=== PATIENT | male | born 1980 | race African-American/Black ===

== ENCOUNTER 2020-08-29 03:44 | Emergency (ER) | payer OTHER ==
[~2020-08-29] VITALS: Ht 177.8 cm; Wt 81.8 kg
[2020-08-29] MEDS ORDERED: LIDO:MAALOX 1:1 20 ML SINGLE DOSE. PO ONE (04:00)
[2020-08-29 04:04] VITALS: BP 154/89
--- NOTE | 2020-08-29 04:12 | PHYS DOC ---
Adult General Chief Complaint Chief Complaint: CHEST PAIN HPI HPI Patient is a 40-year-old male who presents with a chief complaint of chest discomfort. States he woke up at about 2 AM with a pressure just under her sternum, states it just felt uncomfortable and thought it may be gas because he ate a bunch of barbecue and drank some alcohol just before going to bed. States he is in the , and exercises a lot, does not smoke and only drinks occasionally. Denies any drug use. States he has some anxiety issues as well, and had the same feeling a few years ago and was worked up for cardiac issues which came back negative. Denies any recent travel, traumas, illnesses, fevers, cold/flu symptoms, shortness of breath, abdominal pain, nausea, vomiting, diarrhea, hematuria or blood in the stool. Denies any dyspnea on exertion, orthopnea, PND or edema. Review of Systems Review of Systems Review of systems otherwise unremarkable except for noted in HPI Current Medications Current Medications Current Medications Medications (Trade) Dose Ordered Sig/Russell Start Time Stop Time Status Last Admin Dose Admin Multi-Ingredient Mouthwash/Gargle (Gi Cocktail) 20 ml 1X ONCE 08/29/20 04:00 08/29/20 04:01 UNV Allergies Allergies Allergies Coded Allergies Type Severity Reaction Last Updated Verified No Known Drug Allergies 08/29/20 No Physical Exam Physical Exam Constitutional: Well developed, well nourished, no acute distress, non-toxic appearance. [] HENT: Normocephalic, atraumatic, bilateral external ears normal, oropharynx moist, no oral exudates, nose normal. [] Eyes: PERRLA, EOMI, conjunctiva normal, no discharge. [] Neck: Normal range of motion, no tenderness, supple, no stridor. [] Cardiovascular:Heart rate regular rhythm, no murmur [] Lungs & Thorax: Bilateral breath sounds clear to auscultation [] Abdomen: Bowel sounds normal, soft, no tenderness, no masses, no pulsatile masses. [] Skin: Warm, dry, no erythema, no rash. [] Back: No tenderness, no CVA tenderness. [] Extremities: No tenderness, no cyanosis, no clubbing, ROM intact, no edema. [] Neurologic: Alert and oriented X 3, normal motor function, normal sensory function, no focal deficits noted. [] Psychologic: Affect normal, judgement normal, mood normal. [] EKG EKG EKG with a rate of 51, QRS of 98, QTC of 393, no STEMI. Abnormal EKG however with incomplete right bundle branch block.] Radiology/Procedures Radiology/Procedures []IMPRESSION: 1. No radiographic evidence for acute cardiopulmonary process. Electronically signed by: Feliz Johnson MD (08/29/2020 4:30 AM) [facility] Heart Score HEART Score for Chest Pain: HEART Score for Chest Pain Response (Comments) Value History Slighlty/Non-Suspicious 0 ECG Nonspecific Repolarizatio 1 Age < 45 0 Risk Factors No Risk Factors 0 Troponin < Normal Limit 0 Total 1 Risk Factors: Risk Factors: DM, Current or recent (<one month) smoker, HTN, HLP, family history of CAD, obesity. Risk Scores: Risk Factors: DM, Current or recent (<one month) smoker, HTN, HLP, family history of CAD, obesity. Course & Med Decision Making Course & Med Decision Making Patient is a 40-year-old male who presents with substernal chest pressure which started approximately 2 hours ago. States that here in the ED the symptoms have resolved. Vital signs not concerning however heart rate is 51. Patient states that his heart rate is usually somewhere around 50-55 and has been told is because he exercises quite a bit. EKG noted above with no STEMI but does appear to have an incomplete right bundle branch block. Troponin normal. Chest x-ray normal. Heart score of 1. Discussed work-up with patient and advised to follow-up as soon as possible with his primary care physician to discuss outpatient cardiology work-up including stress test and echocardiogram. Also advised to begin an [id number] anti- GERD medication and discuss this with his doctor as well given that he does have symptoms of GERD fairly frequently and states that he ate a bunch of barbecue and drink some alcohol last night right before going to bed. On reassessment patient was still asymptomatic and felt safe discharging home. Patient verbalized understanding of follow-up plan and agreed with plan of discharge. [] Dragon Disclaimer Dragon Disclaimer This electronic medical record was generated, in whole or in part, using a voice recognition dictation system. Departure Departure: Disposition: 01 DC HOME SELF CARE/HOMELESS Condition: GOOD Referrals: NON,STAFF (PCP) Patient Instructions: Chest Pain (Nonspecific), [id number], Heartburn LOUIS BAZZI MD Aug 29, 2020 04:12
--- NOTE | 2020-08-29 04:33 | RAD ---
EXAM: AP View of the chest DATE: 08/29/2020 4:11 AM INDICATION: Reason: CHEST PAIN / Spl. Instructions: / History: COMPARISON: No Prior FINDINGS: The heart is not enlarged. Mediastinal and hilar contours are normal. No focal parenchymal airspace opacity. No pleural effusion or pneumothorax. IMPRESSION: 1. No radiographic evidence for acute cardiopulmonary process. Electronically signed by: Feliz Johnson MD (08/29/2020 4:30 AM) CARISA
--- NOTE | 2020-08-29 05:19 | EKG ---
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
== END 2020-08-29 05:03 | disposition home or self-care (01) ==
LOC: ER 03:44
DX: R07.2 Precordial pain (principal); F41.9 Anxiety disorder, unspecified
CPT/HCPCS: 36415; 71045; 84484; 93005; 99285

== ENCOUNTER 2020-09-17 08:53 | Emergency (ER) | payer OTHER ==
[~2020-09-17] VITALS: Ht 180.3 cm; Wt 86.0 kg
[2020-09-17] MEDS ORDERED: ASPIRIN CHEWABLE 81 MG TABLET. PO ONE (09:15)
--- NOTE | 2020-09-17 09:24 | EKG ---
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
[2020-09-17 09:30] LABS: BASO % 1 % (0-3); EOS # 0.2 x10^3/uL (0.0-0.7); EOS % 5 % (0-3); HEMATOCRIT 41.5 % (39.0-53.0); HEMOGLOBIN 13.7 g/dL (13.0-17.5); LYMPH # 1.1 x10^3/uL (1.0-4.8); LYMPH % 32 % (24-48); MEAN CORPUSCULAR HEMOGLOBIN 31 pg (25-35); MEAN CORPUSCULAR HGB CONC 33 g/dL (31-37); MEAN CORPUSCULAR VOLUME 95 fL (79-100); MONO # 0.4 x10^3/uL (0.0-1.1); MONO % 10 % (0-9); NEUT # 1.8 x10^3uL (1.8-7.7); NEUT % 52 % (31-73); PLATELET COUNT 253 x10^3/uL (140-400); RED BLOOD COUNT 4.39 x10^6/uL (4.30-5.70); RED CELL DISTRIBUTION WIDTH 12.7 % (11.5-14.5); WHITE BLOOD COUNT 3.5 x10^3/uL (4.0-11.0)
--- NOTE | 2020-09-17 09:30 | RAD ---
INDICATION: Reason: chest pain / Spl. Instructions: / History: COMPARISON: August 29, 2020 FINDINGS: 2 view of chest obtained. No focal airspace consolidation. Cardiomediastinal contour unremarkable. No acute osseous abnormality. IMPRESSION: * No focal airspace consolidation or edema. Electronically signed by: Jose Rafael Moran MD (09/17/2020 9:28 AM) [id number]
[2020-09-17 09:45] LABS: CALCIUM 8.8 mg/dL (8.5-10.1); CREATININE 1.1 mg/dL (0.7-1.3); GFR 90.6; POTASSIUM 4.3 mmol/L (3.5-5.1)
[2020-09-17 10:09] LABS: ALBUMIN 4.3 g/dL (3.4-5.0); DIRECT BILIRUBIN 0.2 mg/dL (0.0-0.2); TOTAL BILIRUBIN 0.6 mg/dL (0.2-1.0)
[2020-09-17] MEDS ORDERED: KETOROLAC 30 MG/ML VIAL. IVP ONE (10:30)
[2020-09-17] MEDS ORDERED: SUCR1TAB35 PO (11:05)
--- NOTE | 2020-09-17 11:06 | PHYS DOC ---
Past History Past Medical History: No Pertinent History Past Surgical History: No Surgical History Additional Smoking Information: Cigars monthly Alcohol Use: Occasionally Adult General Chief Complaint Chief Complaint: CHEST PAIN HPI HPI Patient is a 40-year-old previously healthy male who presents to the emergency room complaining of chest pain. Patient has been having problems with intermittent chest pain for the last couple of weeks. He was initially seen here for that pain and had a work-up done that was normal. He states that this morning he woke up with pain that radiated to both shoulders and felt like a pressure. He states the pain initially was substernal in nature and then moved outwards. He denies any shortness of breath, nausea, vomiting, diaphoresis, back pain, trauma. He states he does not get pain when he is working out. Pain is not worse with deep breaths. He does not have a family history of early cardiac disease. Review of Systems Review of Systems Complete ROS is negative unless otherwise documented in HPI Current Medications Current Medications Current Medications Medications (Trade) Dose Ordered Sig/Russell Start Time Stop Time Status Last Admin Dose Admin Aspirin (Aspirin Chewable) 324 mg 1X ONCE 09/17/20 09:15 09/17/20 09:16 DC 09/17/20 10:23 324 MG Ketorolac Tromethamine (Toradol 30mg Vial) 30 mg 1X ONCE 09/17/20 10:30 09/17/20 10:31 DC 09/17/20 10:29 30 MG Allergies Allergies Allergies Coded Allergies Type Severity Reaction Last Updated Verified No Known Drug Allergies 09/17/20 No Physical Exam Physical Exam General: Awake, alert, NAD. Well Nourished, well hydrated. Cooperative HEENT: Atraumatic, EOMI, PERRL, airway patent, moist oral mucosa Neck: Supple, trachea midline Respiratory: CTA bilaterally, normal effort, no wheezing/crackles CV: RRR, no murmur, cap refill <2 GI: Soft, nondistended, nontender, no masses MSK: No obvious deformities Skin: Warm, dry, intact Neuro: A&O x3, speech NL, sensory and motor grossly intact, no focal deficits Psych: Normal affect, normal mood, not suicidal or homicidal Current Patient Data Vital Signs Vital Signs Date Time Temp Pulse Resp B/P (MAP) Pulse Ox O2 Delivery O2 Flow Rate FiO2 09/17/20 08:58 97.7 52 14 134/80 (98) 99 Lab Results Laboratory Tests Test 09/17/20 09:12 White Blood Count 3.5 x10^3/uL (4.0-11.0) L Red Blood Count 4.39 x10^6/uL (4.30-5.70) Hemoglobin 13.7 g/dL (13.0-17.5) Hematocrit 41.5 % (39.0-53.0) Mean Corpuscular Volume 95 fL (79-100) Mean Corpuscular Hemoglobin 31 pg (25-35) Mean Corpuscular Hemoglobin Concent 33 g/dL (31-37) Red Cell Distribution Width 12.7 % (11.5-14.5) Platelet Count 253 x10^3/uL (140-400) Neutrophils (%) (Auto) 52 % (31-73) Lymphocytes (%) (Auto) 32 % (24-48) Monocytes (%) (Auto) 10 % (0-9) H Eosinophils (%) (Auto) 5 % (0-3) H Basophils (%) (Auto) 1 % (0-3) Neutrophils # (Auto) 1.8 x10^3uL (1.8-7.7) Lymphocytes # (Auto) 1.1 x10^3/uL (1.0-4.8) Monocytes # (Auto) 0.4 x10^3/uL (0.0-1.1) Eosinophils # (Auto) 0.2 x10^3/uL (0.0-0.7) Basophils # (Auto) 0.0 x10^3/uL (0.0-0.2) D-Dimer (Anu) 0.20 mg/L (0.00-0.50) Sodium Level 140 mmol/L (136-145) Potassium Level 4.3 mmol/L (3.5-5.1) Chloride Level 104 mmol/L (98-107) Carbon Dioxide Level 29 mmol/L (21-32) Anion Gap 7 (6-14) Blood Urea Nitrogen 16 mg/dL (8-26) Creatinine 1.1 mg/dL (0.7-1.3) Estimated GFR (Cockcroft-Gault) 90.6 Glucose Level 91 mg/dL (70-99) Calcium Level 8.8 mg/dL (8.5-10.1) Total Bilirubin 0.6 mg/dL (0.2-1.0) Direct Bilirubin 0.2 mg/dL (0.0-0.2) Aspartate Amino Transferase (AST) 34 U/L (15-37) Alanine Aminotransferase (ALT) 34 U/L (16-63) Alkaline Phosphatase 63 U/L (46-116) Troponin I Quantitative < 0.017 ng/mL (0-0.055) OC-Jcv-X-Type Natriuretic Peptide 8 pg/mL (0-124) Total Protein 7.0 g/dL (6.4-8.2) Albumin 4.3 g/dL (3.4-5.0) EKG EKG [] Radiology/Procedures Radiology/Procedures [] Heart Score Risk Factors: Risk Factors: DM, Current or recent (<one month) smoker, HTN, HLP, family history of CAD, obesity. Risk Scores: Risk Factors: DM, Current or recent (<one month) smoker, HTN, HLP, family history of CAD, obesity. Course & Med Decision Making Course & Med Decision Making Pertinent Labs and Imaging studies reviewed. (See chart for details) Patient is a 40-year-old previously healthy male who presents to the emergency room after having an episode of chest pain this morning. He did not have any pleuritic symptoms with this. Patient is overall well-appearing. Cardiac work- up was ordered and is normal. D-dimer is negative. It is possible that this could be related to GERD. We will place him on Carafate to see if this helps with the symptoms. Will refer him to Dr. Muir for further evaluation and work-up. Patient's test results and vitals while in the ED were fully reviewed and discussed with the patient. Patient is stable and at this time does not need admission to the hospital. We have discussed strict return precautions and the importance of following up with their Primary Care Physician. Patient stated understanding and was given an opportunity to ask any questions. Patient is in agreement with plan. Dragon Disclaimer Dragon Disclaimer This electronic medical record was generated, in whole or in part, using a voice recognition dictation system. Departure Departure: Impression: Primary Impression: Chest discomfort Disposition: 01 DC HOME SELF CARE/HOMELESS Referrals: BETSY BOWER DO (PCP) YENNIFER MUIR MD Patient Instructions: Chest Pain (Nonspecific) Scripts Sucralfate (CARAFATE) 1 Gm Tablet 1 TAB PO QID for ulcer for 30 Days, #120 TAB 0 Refills Prov: LIU NAJERA MD 09/17/20 LIU NAJERA MD Sep 17, 2020 11:06
[2020-09-17 11:30] VITALS: BP 115/75
== END 2020-09-17 11:45 | disposition home or self-care (01) ==
LOC: ER 08:53
DX: R07.89 Other chest pain (principal); F17.210 Nicotine dependence, cigarettes, uncomplicated
CPT/HCPCS: 36415; 71046; 80048; 80076; 83880; 84484; 85025; 85379; 93005; 96374; 99285; J1885